=== PATIENT | male | born 1945 | race Caucasian/White ===

== ENCOUNTER 2017-03-03 14:15 | Emergency (ER) | payer MEDICARE ==
--- NOTE | ~2017-03-03 | EKG ---
PATIENT: OLEG SHEN UNIT #: [id number] Ventricular Rate: 83 BPM Atrial Rate: 83 BPM P-R Interval: 144 ms QRS Duration: 70 ms Q-T Interval: 360 ms QTC Calculation(Bezet): 423 ms P [place]: 80 degrees Calculated R [place]: 48 degrees Calculated T [place]: 73 degrees Diagnosis Line: Sinus rhythm with sinus arrhythmia with occasional Diagnosis Line: Premature ventricular complexes Diagnosis Line: Septal infarct , age undetermined Diagnosis Line: Abnormal ECG Diagnosis Line: When compared with ECG of 26-JUL-2016 10:37, Diagnosis Line: Premature ventricular complexes are now Present Diagnosis Line: Septal infarct is now Present Diagnosis Line: Nonspecific T wave abnormality no longer evident Diagnosis Line: in Lateral leads Diagnosis Line: Confirmed by DAYTON WALTERS MD ([id number]) on Diagnosis Line: 03/05/2017 3:51:06 PM INTERPRETING MD: ROMEO ORTIZ
--- NOTE | ~2017-03-03 | CR72 ---
[facility] A Service of [facility] RADIOLOGY TEXT RESULTS PATIENT: OLEG SHEN LOCATION: SED : 44 UNIT #: [id number] AGE: [address]: Fco Kelly MD SEX: M ORDER DR: [id number] [address] [address] [id number] E MR#: [id number] Acc #: [id number] NAME: OLEG SHEN : 1945 SEX: M STUDY DATE/TIME: 03/03/2017 14:56 UNIT: SED ROOM: STUDY DESCRIPTION: CR Chest Single View Portable Attending Physician: Fco Kelly M.D. Ordering Physician: Fco Kelly M.D. Primary Care Physician: Joe Perez M.D. MEDICAL IMAGING REPORT This report is preliminary unless electronic signature is present. EXAM Portable chest HISTORY Chest pain, shortness of air for 3 days. FINDINGS Moderate patchy infiltrate or atelectasis in the right lung base, primarily in the medial base, new compared to 08/01/2016. This could be secondary to pneumonia, possibly a combination with atelectasis, but is nonspecific. Bilateral emphysema with scattered linear scarring in both lungs. Cardiac and mediastinal contours are normal. Mildly tortuous descending thoracic aorta. IMPRESSION 1. Moderate infiltrate or atelectasis in the medial right base is new compared to 08/01/2016. Considerations include pneumonia but this is nonspecific. Consider short-term follow-up chest x-ray after appropriate assessment and treatment. 2. Bilateral emphysema. Dictated by... Chintan Bautista M.D. THIS IS AN ELECTRONICALLY VERIFIED REPORT Chintan Bautista M.D. at 03/04/2017 10:54 PM DFL/pcl TD: 03/04/2017 07:36 JOB #: [id number] [facility] A Service of [facility] RADIOLOGY TEXT RESULTS PATIENT: OLEG SHEN LOCATION: SED : 44 UNIT #: [id number] AGE: [address]: Fco Kelly MD SEX: M ORDER DR: MEDICAL IMAGING REPORT Page 1 of 1
[~2017-03-03 14:15] MED LIST: ADVAIR 100-501 EAC1 IH; ADVAIR 2501 DISK W/D PO; ADVAIR 500-501 EACH IH; ADVAIR 5001 DISK W/D PO; ALBUTEROL MININEB NEB; ALBUTEROL NEB; ALBUTEROL17 GM INH; ALBUTEROL17 GM PO; ALBUTEROL20 ml INH; ASPIRIN PO; AUGMENTIN875 M1 PO; AZITHROMYCIN250 MG PO; BREO ELLIPTA 11 EACH IH; BREO ELLIPTA I1 EACH INH; CERTAGEN PO; CLEOCIN PO; COMBIVENT U/D3 ML INH; DIFLUCAN PO; FIORINAL 50-321 EACH PO; FLOVENT HFA12 GM INH; IPRATROPIUM BR21 MCG; LEVAQUIN; MEDROL PO; NASAL 02; NORCO1 TAB 10/3 PO; NYSTATIN5 ML PO; OXYGEN; PATIENT'S PHARMACY; PREDNISONE PO; PREDNISONE10 MG/DOSE PO; PRILOSEC40 MG PO; PROAIR HFA8.5 GM; PROAIR HFA8.5 GM INH; PROTONIX PO; SPIRIVA18 MCG INH; SPIRIVA18 MCG PO; SYMBICORT INH; TESSALON200 MG PO; ZITHROMAX PO; [UNRECOGNIZED DRUG - OTHER]
[2017-03-03 14:48] LABS: BASOPHIL% 0.3 % (0-2.5); EOSINOPHIL% 0.1 % (0.0-7.0); HEMATOCRIT 35.7 % (38.0-50.0); HEMOGLOBIN 11.5 gm/dL (13.0-16.0); LYMPHOCYTE# 0.7 X10e3 (1.0-3.5); LYMPHOCYTE% 10.4 % (17.0-45.0); MEAN CELL VOLUME 92.3 FL (83-96); MEAN CORPUSCULAR HEMOGLOBIN 29.8 PG (28-34); MEAN CORPUSCULAR HGB CONC 32.3 g/dL (30-36); MEAN PLATELET VOLUME 9.4 FL (6.5-11.5); MONOCYTE# 0.3 X10e3 (0-1.0); MONOCYTE% 4.2 % (3.0-12.0); PLATELET COUNT 114 X10e3 (140-420); RED BLOOD COUNT 3.86 X10e (3.90-5.60); RED CELL DISTRIBUTION WIDTH 15.6 % (11.0-15.5)
[2017-03-03 14:54] LABS: DIFF IND NO
[2017-03-03 14:57] LABS: POC - CKMB 1.5 ng/mL (0.0-7.9); POC - TROPONIN <0.05 ng/mL (<=0.05)
[2017-03-03 15:07] LABS: ALBUMIN SERUM 3.9 g/dL (3.5-5.0); ALKALINE PHOSPHATASE 91 U/L (32-92); ALT (SGPT) 11 U/L (10-40); AST (SGOT) 21 U/L (10-42); BILIRUBIN,TOTAL 0.5 mg/dL (0.2-2.0); BLOOD UREA NITROGEN 14 mg/dL (9-23); BUN/CREATININE RATIO 23.33; CALCIUM SERUM 9.5 mg/dL (8.4-10.2); CARBON DIOXIDE 39 mmol/L (22-31); CHLORIDE 90 mmol/L (100-111); CREATININE SERUM 0.6 mg/dL (0.6-1.4); GLOM FILT RATE Estimated 100.5 mL/min (>60); GLUCOSE FASTING 115 mg/dL (70-110); POTASSIUM 4.7 mmol/L (3.5-5.1); PROTEIN TOTAL SERUM 8.1 g/dL (6.0-8.3); SODIUM 136 mmol/L (135-145)
[2017-03-03 15:14] LABS: BILIRUBIN, DIRECT <0.1 mg/dL (0.0-0.2); BILIRUBIN,INDIRECT 0.4 mg/dL (0.0-0.9)
[2017-03-03 15:25] LABS: PROTHROMBIN TIME (PATIENT) 11.3 SECONDS (9.5-12.4)
[2017-03-03 15:33] LABS: PARTIAL THROMBOPLASTIN TIME 27.8 SECONDS (25.6-38.1)
== END 2017-03-03 16:05 | disposition home or self-care (01) ==
LOC: SED 14:15
PROVIDERS: Emergency Medicine
DX: J18.9 Pneumonia, unspecified organism (principal); R03.0 Elevated blood-pressure reading, without diagnosis of hypertension; K21.9 Gastro-esophageal reflux disease without esophagitis; M54.9 Dorsalgia, unspecified; Z88.5 Allergy status to narcotic agent
CPT/HCPCS: 36415; 71010; 80048; 80076; 82553; 84484; 85025; 85610; 85730; 93005; 99285

== ENCOUNTER 2017-03-11 15:11 | Inpatient (IN) | payer MEDICARE ==
[~2017-03-11] VITALS: Ht 185.4 cm; Wt 60.8 kg
--- NOTE | ~2017-03-11 | CR63 ---
[facility] A Service of [facility] RADIOLOGY TEXT RESULTS PATIENT: OLEG SHEN LOCATION: C2A 230-01 : 44 UNIT #: [id number] AGE: [address]: Josué Millan MD SEX: M ORDER DR: [id number] [facility] [address] [facility]. [place], [place] [address] [id number] I MR#: [id number] Acc #: [id number] NAME: OLEG SHEN : 1945 SEX: M STUDY DATE/TIME: 03/15/2017 7:43 UNIT: C2A ROOM: 230 STUDY DESCRIPTION: CR Chest 2 View Attending Physician: Josué Millan M.D. Ordering Physician: Bubba Santa M.D. Primary Care Physician: Leo Hanks Jr., M.D. MEDICAL IMAGING REPORT This report is preliminary unless electronic signature is present EXAM Two-view chest INDICATIONS COPD for 2 weeks. Chest pain. TECHNIQUE PA and lateral views of the chest compared to 03/11/2017. CT chest dated 03/11/2017. FINDINGS Heart mediastinal contours are unchanged. There is background emphysema. There is atelectasis in the right middle lobe. Prior CT scan shows some mucus plugging within the right middle lobe bronchus. There is also some mass effect in the right lower lobe bronchus. Mild patchy airspace opacities. The right lung base are unchanged. IMPRESSION 1. Right basilar airspace opacity is not significantly changed. 2. There is complete atelectasis of the right middle lobe, also unchanged. Please note the prior CT scan showed some mucus plugging within the right middle lobe bronchus. Followup is recommended after resolution to exclude an endobronchial lesion. Dictated by... Chapin Jones M.D. THIS IS AN ELECTRONICALLY VERIFIED REPORT Chapin Jones M.D. at 03/15/2017 2:15 PM YVON/flako [facility] A Service of [facility] RADIOLOGY TEXT RESULTS PATIENT: OLEG SHEN LOCATION: [facility] 230-01 : 44 UNIT #: [id number] AGE: [address]: Josué Millan MD SEX: M ORDER DR: TD: 03/15/2017 09:53 JOB #: [id number] MEDICAL IMAGING REPORT Page 1 of 1 COPY
--- NOTE | ~2017-03-11 | HP ---
Unit #: [id number] #: [id number] Patient: OLEG SHEN [id number] [address] [place], [place] [address] [id number] I MR#: [id number] NAME: OLEG SHEN ROOM: 230 Age: 71 Sex: M Admission Date: 03/11/2017 : 1945 Attending Physician: Josué Millan M.D. Primary Care Physician: Leo Hanks Jr., M.D. HISTORY AND PHYSICAL HISTORY OF PRESENT ILLNESS Mr. Shen is a 71-year-old white male with severe endstage chronic obstructive pulmonary disease and chronic respiratory failure, maintained on home O2. He presented with a 10-day history of right-sided chest pain. He had been seen in the emergency room at [facility] last week and said to have a new infiltrate in the right base and was prescribed Levaquin. His pain improved initially, but he continued to have intermittent chest pain and some shortness of breath. He did not have any fever or chills or purulent sputum or hemoptysis. He represented here to the emergency room and a CT scan was done, which showed no evidence of pulmonary embolus. He did have right lower lobe infiltrate, consistent with pneumonia and a trace pleural effusion. There were bilateral emphysematous changes with some fibrotic changes. His chemistries were remarkable for CO2 of 40, lactic acid of 1.1. White blood cell count was 5,100, hematocrit was 35.7, platelet count was 124,000, baseline. We were called to admit the patient. PAST MEDICAL HISTORY 1. Severe chronic obstructive pulmonary disease. 2. Chronic respiratory failure, maintained on home O2. 3. History of izabella esophagitis with upper esophageal stricture, seen by Dr. Her in the past. Current symptoms resolved with treatment of izabella esophagitis. 4. History of GERD. PAST SURGICAL HISTORY 1. Bilateral cataract extraction. 2. Gastric ulcer surgery. 3. Appendectomy. SOCIAL HISTORY Reformed smoker. No alcohol or illicit drugs. FAMILY HISTORY Negative lung disease. ALLERGIES Codeine. HOME MEDICATIONS 1. Breo 100/25 one daily. 2. Ventolin 2 puffs q.4 h. p.r.n. 3. Spiriva 1 daily. 4. Fioricet daily p.r.n. Unit #: [id number] #: [id number] Patient: OLEG SHEN REVIEW OF SYSTEMS Ten point systems otherwise negative. PHYSICAL EXAMINATION GENERAL: White male in no distress, sitting up in bed, able to speak in complete sentences. Not using accessory muscles presently. VITALS: Blood pressure 128/77, pulse 75, respiratory rate 18, afebrile. HEENT: Normocephalic, atraumatic. Pupils equal, round and reactive. Sclerae nonicteric. Nasal passages patent. Posterior pharynx clear. Mucous membranes moist. NECK: Supple. Trachea midline. No cervical or supraclavicular lymphadenopathy. LUNGS: Some mild expiratory wheezes bilaterally. HEART: Heart sounds distant. Regular rate and rhythm. Could not appreciate murmur, rub or gallop. ABDOMEN: Nontender. Bowel sounds present. No hepatosplenomegaly. EXTREMITIES: Without clubbing, cyanosis, edema or Trevor sign. No cords palpated. NEUROLOGIC: Awake, oriented times three. Cranial nerves intact. Muscle strength symmetric bilaterally. Affect calm. SKIN: Warm and dry. DIAGNOSTIC STUDIES IMAGING: Chest x-ray and CT scans personally reviewed as noted. LABORATORY: Personally reviewed. ASSESSMENT 1. Probable right lower lobe pneumonia. 2. COPD exacerbation. 3. Acute on chronic respiratory failure. PLAN Will treat with broad spectrum antibiotics. Will check blood cultures and sputum sample and adjust antibiotics appropriately. Administer O2 to maintain adequate saturations. Will continue bronchodilators, inhaled cortical steroids and burst parenteral steroids for exacerbation of chronic obstructive pulmonary disease. Will continue O2 to maintain adequate saturation. Will provide DVT prophylaxis. Further recommendations pending this. Dictated by Bubba Santa M.D. KIARRA/ana luisa TD: 03/12/2017 14:16 JOB #: [id number] Unit #: [id number] #: [id number] Patient: OLEG SHEN HISTORY AND PHYSICAL Page 1 of 1 X Bubba Santa MD X HISTORY AND PHYSICAL
--- NOTE | ~2017-03-11 | A ---
[facility] Nutrition Therapy DATE: 03/12/17 Patient: OLEG SHEN Physician: VAISHNAVI Address: [address] [place] [address] [address] Room/Bed: [address] [place] [address], Zip: [place] [address] Admit Date: 03/11/17 Date of : 44 Height: 6 1 Weight: 134 60.78 NUTRITIONAL ASSESSMENT: REASON: LOW BMI PT IS 71 Y.O. MALE ADMITTED FOR PNA PMH: SEVERE COPD, GERD, RESPIRATORY FAILURE, ESOPHAGEAL STRICTURES, HX OF GASTRIC SURGERY Anthropometrics: 6'1", WT: 133# (PER PT) (60 KG), BMI: 17.5, 72%IBW Labs: GLU: 116, CREAT: 0.5, ALB: 4.0 Meds: NACL, ZOSYN, SOLU-MEDROL I/O & Bowel function: 690/1 Skin Integrity: DRY SKIN NOTED ALL OVER BODY Estimated Nutrition Needs: INCREASED NEEDS 2' PT UNDERWEIGHT, PMH NOTED Assessment: CHART REVIEWED AND EVENTS NOTED. PT SEEN FOR LOW BMI. PT REPORTS GOOD PO INTAKE AND APPETITE PRIOR TO ADMIT, NO C/O N/V/D. PT REPORTS CONSUMING 6 SMALL MEALS DAILY + ENSURE SHAKES (1-2 DAILY). PT REPORTS WEIGHT GAIN PAST FEW MONTHS-NOTES HE WEIGHED ~116# IN JULY 2016. OF NOTE, RD ASSESSED PT BACK IN JULY 2016, AND PT REPORTED UBW IS ~180# (OVER PAST SEVERAL YEARS). THIS RD ENCOURAGED ADEQUATE KCAL AND PROTEIN INTAKE, PT AGREED TO ENSURE ENLIVE SHAKES HERE AT [facility]. PT REPORTED NO DIET QUESTIONS AT THIS TIME. RD TO FOLLOW. Dx: UNDERWEIGHT R/T PMH AEB LOW BMI OF 17.5, 72%IBW. Intervention: 1. REGULAR DIET 2. ENSURE ENLIVE SHAKES BID (VANILLA) 3. 6 SMALL MEALS Monitoring, Evaluation and Goals: 1. ORAL INTAKE; CONSUME/TOLERATE >50% OF MEALS AND SUPPLEMENTS 2. WEIGHTS; PROMOTE GRADUAL WEIGHT GAIN TOWARDS HEALTHY BMI 3. LABS; WNL 4. GI; PROMOTE REGULAR GI FUNCTION MONITOR: -PO INTAKE/APPETITE -WEIGHTS -SUPPLEMENT INTAKE [facility] Nutrition Therapy DATE: 03/12/17 Patient: OLEG SHEN Physician: VAISHNAVI Address: [address] [place] [address] COURT Room/Bed: [address], Zip: [place] [address] Admit Date: 03/11/17 Date of : 44 Height: 6 1 Weight: 134 60.78 Recommendations: 1. PLEASE ORDER VANILLA ENSURE ENLIVE SHAKES BID (PER PT REQUEST) 2. PLEASE ORDER 6 SMALL MEALS TO BETTER FACILITATE PO INTAKE 3. PLEASE PROVIDE WEIGHTS q 3 DAYS FOR MONITORING PURPOSES 4. ENCOURAGE ADEQUATE PO INTAKE PT IS CLINICALLY UNDERWEIGHT RD WILL F/U PER PROTOCOL PT IS MILD/MODERATELY COMPROMISED Respectfully, WINIFRED KYLE MS, RD, LD [employer] cc: client file
--- NOTE | ~2017-03-11 | EKG ---
PATIENT: OLEG SHEN UNIT #: [id number] Ventricular Rate: 70 BPM Atrial Rate: 70 BPM P-R Interval: 140 ms QRS Duration: 82 ms Q-T Interval: 378 ms QTC Calculation(Bezet): 408 ms P Fisher: 77 degrees Calculated R Fisher: 37 degrees Calculated T Fisher: 44 degrees Diagnosis Line: Normal sinus rhythm Diagnosis Line: Normal ECG Diagnosis Line: When compared with ECG of 03-MAR-2017 14:19, Diagnosis Line: Premature ventricular complexes are no longer Diagnosis Line: Present Diagnosis Line: Criteria for Septal infarct are no longer Present Diagnosis Line: Nonspecific T wave abnormality, improved in Diagnosis Line: Inferior leads Diagnosis Line: Confirmed by NAWAF NEVES MD ([id number]) on Diagnosis Line: 03/13/2017 10:31:02 AM INTERPRETING MD: PURA ORTIZ
--- NOTE | ~2017-03-11 | CR72 ---
[facility] A Service of [facility] RADIOLOGY TEXT RESULTS PATIENT: OLEG SHEN LOCATION: [facility] : 44 UNIT #: [id number] AGE: [address]: Josué Millan MD SEX: M ORDER DR: [id number] [facility] [address] [facility]. [place], [place] [address] [id number] I MR#: [id number] Acc #: [id number] NAME: OLEG SHEN : 1945 SEX: M STUDY DATE/TIME: 03/11/2017 15:40 UNIT: A ROOM: 230 STUDY DESCRIPTION: CR Chest Single View Portable Attending Physician: Josué Millan M.D. Ordering Physician: Bhaskar Chaparro D.O. Primary Care Physician: Leo Hanks Jr., M.D. MEDICAL IMAGING REPORT This report is preliminary unless electronic signature is present EXAM Portable chest 1 view, 03/11/2017 COMPARISON 03/03/2017 HISTORY Short of air for 10 days, recently diagnosed with pneumonia. FINDINGS Pulmonary hyperexpansion consistent with COPD redemonstrated along with right middle lobe coarse infiltrate, though that is slightly improved since the prior study. There is no apparently effusion, no pneumothorax and no new infiltrate. IMPRESSION 1. Partial improvement/incomplete resolution of right middle lobe infiltrate. 2. COPD. 3. No new abnormality when compared to 03/03/2017. Dictated by... Mp Lee M.D. THIS IS AN ELECTRONICALLY VERIFIED REPORT Mp Lee M.D. at 03/12/2017 10:26 AM TEV/psc TD: 03/11/2017 20:29 JOB #: [id number] [facility] A Service [facility] RADIOLOGY TEXT RESULTS PATIENT: OLEG SHEN LOCATION: [facility] : 44 UNIT #: [id number] AGE: [address]: Josué Millan MD SEX: M ORDER DR: MEDICAL IMAGING REPORT Page 1 of 1 COPY
--- NOTE | ~2017-03-11 | DS ---
Unit #: [id number] #: [id number] Patient: OLEG SHEN [id number] [address] [place], [place] [address] [id number] I MR#: [id number] NAME: OLEG SHEN ROOM: 230 Age: 71 Sex: M Admission Date: 03/11/2017 : 1945 Discharge Date: 03/16/2017 Attending Physician: Josué Millan M.D. Primary Care Physician: Leo Hanks Jr., M.D. DISCHARGE SUMMARY DISCHARGE DIAGNOSES 1. Acute on chronic hypoxemic hypercarbic respiratory failure. 2. Right middle lobe and lower lobe infiltrate, possible pneumonia. 3. Possible mucus plugging. 4. Chronic obstructive pulmonary disease exacerbation. 5. History of esophageal stricture, now currently without symptoms. DISCHARGE MEDICATIONS Albuterol inhaler nebulizer every 4 hours as needed, Spiriva 1 inhalation daily, Breo 100/25 one inhalation daily, Fioricet q.6 hours as needed, Augmentin 875 b.i.d., prednisone 40 mg for 4 days, to decrease by 10 mg for 4 days to off. Home O2 at prescribed level. HOSPITAL COURSE A 71-year-old white male with end-stage COPD and chronic respiratory failure, maintained on home oxygen, admitted with a 10-day history of right-sided chest pain. Please refer to H and P for details. He was admitted with pneumonia, exacerbation of COPD, and acute on chronic respiratory failure. Troponin was less than 0.05. He was still felt to have a pneumonia possibly atypical. He was treated with inhaled bronchodilators, IV Solu-Medrol, and covered with antibiotics in form of Rocephin and Zithromax. He is improved clinically. His right-sided chest pain has resolved. Chest x-ray remains unchanged. His steroids have been weaned. He will be discharged home. Continue on his medicines as mentioned above. Follow up chest x-ray in 3 weeks. If seen in the right middle lobe and lower lobe, we will need repeat CT scan and possible bronchoscopy. Dictated by... Bubba Santa M.D. KIARRA/lisy TD: 03/18/2017 23:40 JOB #: [id number] Unit #: [id number] #: [id number] Patient: OLEG SHEN DISCHARGE SUMMARY Page 1 of 1 X Bubba Santa MD X DISCHARGE SUMMARY
--- NOTE | ~2017-03-11 | CT16 ---
[facility] A Service of [facility] RADIOLOGY TEXT RESULTS PATIENT: OLEG SHEN LOCATION: C2A 230-01 : 44 UNIT #: [id number] AGE: [address]: Josué Millan MD SEX: M ORDER DR: [id number] [facility] [address] [facility]. [place], [place] [address] [id number] I MR#: [id number] Acc #: [id number] NAME: OLEG SHEN : 1945 SEX: M STUDY DATE/TIME: 03/11/2017 17:00 UNIT: [facility] ROOM: 230 STUDY DESCRIPTION: CT Angio Chest for PE Attending Physician: Josué Millan M.D. Ordering Physician: Christopher Polo M.D. Primary Care Physician: Leo Hanks Jr., M.D. MEDICAL IMAGING REPORT This report is preliminary unless electronic signature is present EXAM Chest CT with contrast with CT angiography HISTORY Shortness of breath for the past 2 weeks. Recent diagnosis of pneumonia. TECHNIQUE Axial imaging was obtained through chest with contrast. 80 mL of Isovue was used. CT angiography was performed with thick sliding MIPs in sagittal and coronal projections. This CT exam was performed with one or more of the following radiation dose reduction techniques: automatic exposure control, adjustment of mA and/or kV according to patient size, and iterative reconstruction. FINDINGS Chest images at mediastinal window show no pulmonary emboli. There is a trace right pleural effusion. No pericardial fluid is seen. The aorta is unremarkable with no evidence of dissection. Atherosclerotic change is noted. CT angiographic imaging also shows no emboli. Lung window imaging shows emphysema with interstitial fibrosis. There is patchy consolidation in the right lower lobe posteriorly surrounded by a tree-in-bud infiltrate consistent with an acute inflammatory process such as pneumonia. No suspicious masses are seen. This should be followed until complete clearing. Multiple healed thoracic compression fractures are noted. IMPRESSION 1. No evidence of pulmonary emboli. 2. Infiltrate at the right lung base consistent with patient's known diagnosis of pneumonia. This is accompanied by a trace pleural [facility] A Service of [facility] RADIOLOGY TEXT RESULTS PATIENT: OLEG SHEN LOCATION: [facility] 230-01 : 44 UNIT #: [id number] AGE: [address]: Josué Millan MD SEX: M ORDER DR: effusion. 3. Emphysema with interstitial fibrosis. Dictated by... Christopher Carpenter M.D. THIS IS AN ELECTRONICALLY VERIFIED REPORT Christopher Carpenter M.D. at 03/12/2017 9:36 AM ANAYELI/alex TD: 03/11/2017 22:42 JOB #: [id number] MEDICAL IMAGING REPORT Page 1 of 1 COPY
[2017-03-11] MEDS ORDERED: SPIRIVA18 MCG INH (15:45)
[2017-03-11] MEDS ORDERED: ALBUTEROL17 GM INH (15:45)
[2017-03-11] MEDS ORDERED: BREO ELLIPTA 11 EACH INH (15:46)
[2017-03-11] MEDS ORDERED: FIORICET 50-301 EACH PO (15:47)
[2017-03-11 15:48] LABS: BASOPHIL% 0.3 % (0-2.5); EOSINOPHIL% 0.3 % (0.0-7.0); HEMATOCRIT 35.7 % (38.0-50.0); HEMOGLOBIN 11.2 gm/dL (13.0-16.0); LYMPHOCYTE# 0.6 X10e3 (1.0-3.5); LYMPHOCYTE% 11.9 % (17.0-45.0); MEAN CELL VOLUME 92.4 FL (83-96); MEAN CORPUSCULAR HGB CONC 31.4 g/dL (30-36); MEAN PLATELET VOLUME 9.2 FL (6.5-11.5); MONOCYTE# 0.1 X10e3 (0-1.0); MONOCYTE% 2.6 % (3.0-12.0); NEUTROPHIL# 4.3 X10e3 (1.5-7.1); NEUTROPHIL% 84.9 % (40-75); PLATELET COUNT 124 X10e3 (140-420); RED BLOOD COUNT 3.86 X10e (3.90-5.60); RED CELL DISTRIBUTION WIDTH 15.3 % (11.0-15.5); WHITE BLOOD COUNT 5.1 X10e3 (4.0-10.5)
[2017-03-11 15:50] LABS: DIFF IND NO
[2017-03-11 16:02] LABS: POC - CKMB 2.1 ng/mL (0.0-7.9); POC - TROPONIN <0.05 ng/mL (<=0.05)
[2017-03-11 16:23] LABS: ALKALINE PHOSPHATASE 121 U/L (32-92); ALT (SGPT) 10 U/L (10-40); AST (SGOT) 20 U/L (10-42); BILIRUBIN,TOTAL 0.6 mg/dL (0.2-2.0); BLOOD UREA NITROGEN 16 mg/dL (9-23); CALCIUM SERUM 9.4 mg/dL (8.4-10.2); CARBON DIOXIDE 44 mmol/L (22-31); CHLORIDE 90 mmol/L (100-111); CREATININE SERUM 0.5 mg/dL (0.6-1.4); GLOM FILT RATE Estimated 108.3 mL/min (>60); GLUCOSE FASTING 116 mg/dL (70-110); POTASSIUM 4.6 mmol/L (3.5-5.1); PROTEIN TOTAL SERUM 8.2 g/dL (6.0-8.3); SODIUM 139 mmol/L (135-145)
[2017-03-11 16:24] LABS: BILIRUBIN, DIRECT <0.1 mg/dL (0.0-0.2); BILIRUBIN,INDIRECT 0.5 mg/dL (0.0-0.9)
[2017-03-11 17:49] LABS: POC - CKMB <1.0 ng/mL (0.0-7.9); POC - TROPONIN <0.05 ng/mL (<=0.05)
[2017-03-12 07:05] LABS: CREATININE SERUM 0.5 mg/dL (0.6-1.4); GLOM FILT RATE Estimated 108.3 mL/min (>60); POTASSIUM 4.6 mmol/L (3.5-5.1)
[2017-03-12 08:10] LABS: LEGIONELLA AG URINE NEG (NEG)
[2017-03-14 06:54] LABS: CREATININE SERUM 0.5 mg/dL (0.6-1.4); GLOM FILT RATE Estimated 108.3 mL/min (>60); POTASSIUM 4.9 mmol/L (3.5-5.1)
[2017-03-16 06:29] LABS: CALCIUM SERUM 9.2 mg/dL (8.4-10.2); CREATININE SERUM 0.5 mg/dL (0.6-1.4); GLOM FILT RATE Estimated 108.3 mL/min (>60)
[2017-03-16] MEDS ORDERED: PREDNISONE10 M1 PO (12:36)
[2017-03-16] MEDS ORDERED: AUGMENTIN PO (12:37)
== END 2017-03-16 14:00 | disposition home or self-care (01) | DRG 189 ==
LOC: CED 15:11 → C2A 18:15 → CEDOF 18:15 → CED 18:32 → C2A 19:50 → CEDOF 19:50 → C2A 03-16 14:00
PROVIDERS: Emergency Medicine; Internal Medicine
PROC: B32TYZZ Computerized Tomography (CT Scan) of Left Pulmonary Artery using Other Contrast (ICD-10-PCS; principal; 2017-03-11)
PROC: B32SYZZ Computerized Tomography (CT Scan) of Right Pulmonary Artery using Other Contrast (ICD-10-PCS; 2017-03-11)
DX: J96.20 Acute and chronic respiratory failure, unspecified whether with hypoxia or hypercapnia (principal); J18.9 Pneumonia, unspecified organism; J44.0 Chronic obstructive pulmonary disease with (acute) lower respiratory infection; Z99.81 Dependence on supplemental oxygen; J44.1 Chronic obstructive pulmonary disease with (acute) exacerbation; Z68.1 Body mass index [BMI] 19.9 or less, adult; Z98.42 Cataract extraction status, left eye; Z98.41 Cataract extraction status, right eye; Z87.891 Personal history of nicotine dependence; R63.6 Underweight
CPT/HCPCS: 36415; 71010; 71020; 71275; 80048; 80076; 80202; 82308; 82553; 83605; 84484; 85025; 87040; 87449; 87899; 93005; 94640; 94760; 96365; 96367; 96375; 99285; J0456; J0696; J1650; J2543; J2920; J2930; J3370; Q9967

== ENCOUNTER 2017-03-30 01:07 | Emergency (ER) | payer MEDICARE ==
[~2017-03-30] VITALS: Ht 185.4 cm; Wt 52.6 kg
--- NOTE | ~2017-03-30 | CT4 ---
[facility] A Service of [facility] RADIOLOGY TEXT RESULTS PATIENT: OLEG SHEN LOCATION: SED : 44 UNIT #: [id number] AGE: [address]: Berny Camacho MD SEX: M ORDER DR: [id number] [place] [id number] E MR#: [id number] Acc #: [id number] NAME: OLEG SHEN : 1945 SEX: M STUDY DATE/TIME: 03/30/2017 3:15 UNIT: SED ROOM: STUDY DESCRIPTION: CT Abd and Pelv Wo Cont Attending Physician: Berny Camacho M.D. Ordering Physician: Angelia Rosario Pa-C Primary Care Physician: Leo Hanks Jr., M.D. MEDICAL IMAGING REPORT This report is preliminary unless electronic signature is present. EXAMINATION CT abdomen and pelvis without contrast. DATE 03/30/2017 HISTORY Colon cancer. Left side abdominal pain radiating to the back has become more intense over the past [address] of the abdomen and pelvis without contrast, 03/22/2015. PROCEDURE 3 mm noncontrast axial images through the abdomen and pelvis. Enteric contrast not administered. Sagittal and coronal reformatted images were obtained. This CT exam was performed with one or more of the following radiation dose reduction techniques: automatic exposure control, adjustment of mA and/or kV according to patient size, and iterative reconstruction. FINDINGS ABDOMEN FINDINGS: Large stool burden in the ascending and transverse colonic segments without evidence of high-grade obstruction is seen. Limited evaluation of bowel due to lack of enteric contrast. No abnormal small bowel dilation is evident. Diverticular changes are present in the sigmoid colon without evidence of acute diverticulitis. Patchy alveolar disease changes are present in the posterior right lower lobe. Right middle lobe appears atelectatic. Advanced emphysematous changes are present. Tiny cyst is seen within the central liver. Low-densities lesions are present in the left kidney thought to represent cysts. Largest measures 6.8 cm and 3.5 cm, stable to minimally enlarged [facility] A Service of [facility] RADIOLOGY TEXT RESULTS PATIENT: OLEG SHEN [id number] 44 UNIT #: [id number] AGE: [address]: Berny Camacho MD SEX: M ORDER DR: compared to the 2015 examination. No renal or ureteral calculus, hydronephrosis or perinephric inflammation is seen. There is moderately advanced calcific atherosclerosis in the abdominal aorta and common iliac arteries. Borderline aneurysmal dilation of the infrarenal abdominal aorta up to 3.0 cm, not significantly changed. Gallbladder, spleen, pancreas and adrenal glands within normal limits. PELVIS FINDINGS: Urinary bladder and prostate gland are within normal limits. Moderate stool burden in the rectal vault. No free fluid. Chronic-appearing compression fracture of L1. Multilevel degenerative changes. No acute osseous abnormalities. IMPRESSION 1. No acute inflammatory changes are seen within the abdomen. 2. Large stool burden within the ascending or transverse colon without evidence of high-grade obstruction. Correlate for constipation symptoms. 3. Uncomplicated sigmoid diverticulosis. 4. Two large left renal cysts, stable to slightly larger than on previous examination. 5. Borderline aneurysmal dilation of the infrarenal abdominal aorta 3 cm, not significantly changed. 6. Chronic-appearing L1 compression deformity, which appears new since 03/22/2015. 7. Patchy right basilar airspace disease. Correlate clinically with pneumonia. Right middle lobe appears atelectatic. Emphysema. 8. No renal or ureteral stone, hydronephrosis or hydroureter. Dictated by... Maria De Jesus Danielson M.D. THIS IS AN ELECTRONICALLY VERIFIED REPORT Maria De Jesus Danielson M.D. at 03/30/2017 9:39 PM NIDIA/miles TD: 03/30/2017 18:29 JOB #: [id number] MEDICAL IMAGING REPORT Page 1 of 1
--- NOTE | ~2017-03-30 | CR63 ---
[facility]. [facility] A Service of [facility] RADIOLOGY TEXT RESULTS PATIENT: OLEG SHEN LOCATION: SED : 43 UNIT #: [id number] AGE: [address]: Berny Camacho MD SEX: M ORDER DR: [id number] [place] [id number] E MR#: [id number] Acc #: [id number] NAME: OLEG SHEN : 1945 SEX: M STUDY DATE/TIME: 03/30/2017 3:02 UNIT: SED ROOM: STUDY DESCRIPTION: CR Chest 2 View Attending Physician: Berny Camacho M.D. Ordering Physician: Angelia Rosario Pa-C Primary Care Physician: Leo Hanks Jr., M.D. MEDICAL IMAGING REPORT This report is preliminary unless electronic signature is present. EXAMINATION PA and lateral chest. DATE 03/30/2017 HISTORY 71-year-old male with history of colon cancer, now with left-sided chest pain radiating to back, increasing over the past 3 days. Shortness of breath and dizziness today. Emphysema. COMPARISON PA and lateral chest, 03/15/2017. FINDINGS Irregular patchy band-like density in the posterior right lower lobe is unchanged from prior, may represent some residual pneumonia or scarring. There is persistent suspected large right middle lobe atelectasis, which is unchanged from previous plain film and is not thought to be significantly changed from previous CT from 03/11/2017. Emphysematous changes are present. Stable thoracic aortic ectasia. No definite pleural effusion or pneumothorax. IMPRESSION 1. Suspected chronic right middle lobe atelectatic changes, similar to the CT chest from 03/11/2017. This may represent changes of chronic right middle lobe bronchial plugging. 2. Patchy right lower lobe airspace disease posteriorly may represent some residual pneumonia or evolving area of scarring. 3. No definite new airspace disease with comparison to the chest radiograph from 03/15/2017. 4. Emphysema. 1. [facility] A Service of [facility] RADIOLOGY TEXT RESULTS PATIENT: OLEG SHEN LOCATION: [facility] [place] : 43 UNIT #: [id number] AGE: [address]: Berny Camacho MD SEX: M ORDER DR: Dictated by... Maria De Jesus Danielson M.D. THIS IS AN ELECTRONICALLY VERIFIED REPORT Maria De Jesus Danielson M.D. at 03/30/2017 9:39 PM NIDIA/miles TD: 03/30/2017 18:24 JOB #: [id number] MEDICAL IMAGING REPORT Page 1 of 1
[~2017-03-30 01:07] MED LIST changes: +AUGMENTIN PO; +BREO ELLIPTA 11 EACH INH; +FIORICET 50-301 EACH PO; +PREDNISONE10 M1 PO
[2017-03-30 02:09] LABS: BASOPHIL% 0.3 % (0-2.5); EOSINOPHIL% 0.3 % (0.0-7.0); HEMATOCRIT 34.4 % (38.0-50.0); HEMOGLOBIN 11.1 gm/dL (13.0-16.0); LYMPHOCYTE# 1.5 X10e3 (1.0-3.5); LYMPHOCYTE% 22.3 % (17.0-45.0); MEAN CELL VOLUME 92.1 FL (83-96); MEAN CORPUSCULAR HEMOGLOBIN 29.7 PG (28-34); MEAN CORPUSCULAR HGB CONC 32.2 g/dL (30-36); MEAN PLATELET VOLUME 10.1 FL (6.5-11.5); MONOCYTE# 1.5 X10e3 (0-1.0); MONOCYTE% 22.3 % (3.0-12.0); NEUTROPHIL# 3.7 X10e3 (1.5-7.1); NEUTROPHIL% 54.8 % (40-75); PLATELET COUNT 100 X10e3 (140-420); RED BLOOD COUNT 3.74 X10e (3.90-5.60); RED CELL DISTRIBUTION WIDTH 15.5 % (11.0-15.5); WHITE BLOOD COUNT 6.7 X10e3 (4.0-10.5)
[2017-03-30 02:18] LABS: DIFF IND YES
[2017-03-30 02:39] LABS: PLATELET ESTIMATE DECREASED (NORMAL); POIKILOCYTOSIS SL
[2017-03-30 02:40] LABS: ALBUMIN SERUM 3.7 g/dL (3.5-5.0); ALKALINE PHOSPHATASE 118 U/L (32-92); ALT (SGPT) 13 U/L (10-40); ANISOCYTOSIS SL; AST (SGOT) 18 U/L (10-42); BILIRUBIN,TOTAL 0.3 mg/dL (0.2-2.0); BLOOD UREA NITROGEN 14 mg/dL (9-23); CALCIUM SERUM 9.3 mg/dL (8.4-10.2); CHLORIDE 94 mmol/L (100-111); CREATININE SERUM 0.7 mg/dL (0.6-1.4); GLOM FILT RATE Estimated 94.3 mL/min (>60); GLUCOSE FASTING 103 mg/dL (70-110); POTASSIUM 4.7 mmol/L (3.5-5.1); PROTEIN TOTAL SERUM 7.9 g/dL (6.0-8.3); SODIUM 140 mmol/L (135-145)
[2017-03-30 02:42] LABS: BILIRUBIN, DIRECT <0.1 mg/dL (0.0-0.2); BILIRUBIN,INDIRECT 0.2 mg/dL (0.0-0.9); CARBON DIOXIDE 43 mmol/L (22-31)
== END 2017-03-30 04:20 | disposition home or self-care (01) ==
LOC: SED 01:07
PROVIDERS: Physician Assistant Medical
DX: K59.00 Constipation, unspecified (principal); J44.9 Chronic obstructive pulmonary disease, unspecified; Z98.890 Other specified postprocedural states; Z87.891 Personal history of nicotine dependence; Z88.5 Allergy status to narcotic agent
CPT/HCPCS: 36415; 71020; 74176; 80048; 80076; 85025; 99284

== ENCOUNTER 2017-04-16 15:08 | Emergency (ER) | payer MEDICARE ==
[~2017-04-16] VITALS: Ht 182.9 cm; Wt 52.6 kg
[2017-04-16 18:22] LABS: BASOPHIL% 0.3 % (0-2.5); EOSINOPHIL% 0.1 % (0.0-7.0); HEMATOCRIT 36.3 % (38.0-50.0); HEMOGLOBIN 11.8 gm/dL (13.0-16.0); LYMPHOCYTE% 15.4 % (17.0-45.0); MEAN CELL VOLUME 92.2 FL (83-96); MEAN CORPUSCULAR HEMOGLOBIN 29.9 PG (28-34); MEAN CORPUSCULAR HGB CONC 32.4 g/dL (30-36); MONOCYTE# 0.4 X10e3 (0-1.0); NEUTROPHIL# 4.9 X10e3 (1.5-7.1); NEUTROPHIL% 77.2 % (40-75); PLATELET COUNT 135 X10e3 (140-420); RED BLOOD COUNT 3.94 X10e (3.90-5.60); RED CELL DISTRIBUTION WIDTH 15.4 % (11.0-15.5); WHITE BLOOD COUNT 6.3 X10e3 (4.0-10.5)
[2017-04-16 18:31] LABS: DIFF IND YES
[2017-04-16 18:38] LABS: PLATELET ESTIMATE NORMAL (NORMAL)
[2017-04-16 18:50] LABS: ALBUMIN SERUM 3.9 g/dL (3.5-5.0); ALKALINE PHOSPHATASE 208 U/L (32-92); ALT (SGPT) 14 U/L (10-40); AMYLASE 30 U/L (0-46); AST (SGOT) 23 U/L (10-42); BILIRUBIN, DIRECT <0.1 mg/dL (0.0-0.2); BILIRUBIN,INDIRECT 0.4 mg/dL (0.0-0.9); BILIRUBIN,TOTAL 0.5 mg/dL (0.2-2.0); BLOOD UREA NITROGEN 13 mg/dL (9-23); CALCIUM SERUM 9.4 mg/dL (8.4-10.2); CARBON DIOXIDE 41 mmol/L (22-31); CHLORIDE 91 mmol/L (100-111); CREATININE SERUM 0.5 mg/dL (0.6-1.4); GLOM FILT RATE Estimated 108.3 mL/min (>60); GLUCOSE FASTING 99 mg/dL (70-110); LIPASE 38 U/L (22-51); POTASSIUM 4.6 mmol/L (3.5-5.1); PROTEIN TOTAL SERUM 7.5 g/dL (6.0-8.3); SODIUM 140 mmol/L (135-145)
[2017-04-16 22:10] LABS: URINE SOURCE CLEAN CATCH
[2017-04-16 22:17] LABS: URINE APPEARANCE TURBID; URINE BILIRUBIN NEG (NEG); URINE BLOOD NEG (NEG); URINE COLOR YELLOW; URINE GLUCOSE NEG (NEG); URINE KETONE NEG (NEG); URINE LEUKOCYTE ESTERASE NEG (NEG); URINE NITRATE NEG (NEG); URINE PROTEIN NEG (NEG); URINE SPECIFIC GRAVITY 1.017 (1.003-1.035); URINE UROBILINOGEN 0.2 MG/DL (NEG)
[2017-04-16 22:23] LABS: CULTURE INDICATED? NO
== END 2017-04-16 22:05 | disposition home or self-care (01) ==
LOC: CED 15:08
PROVIDERS: Emergency Medicine
DX: K59.00 Constipation, unspecified (principal); J43.9 Emphysema, unspecified
CPT/HCPCS: 36415; 80048; 80076; 81003; 82150; 83690; 85025; 99283